=== PATIENT | male | born 1955 | race Caucasian/White ===

== ENCOUNTER → 2024-04-17 14:56 | Outpatient (REF) | payer OTHER, SELFPAY | LOC: HWRAD 14:56 | PROVIDERS: ATTENDING PHYSICIAN Student in an Organized Health Care Education/Training Program | DX: R07.81 Pleurodynia (principal); R10.9 Unspecified abdominal pain | CPT/HCPCS: 71101; 74177; Q9967 ==

== ENCOUNTER 2024-11-16 06:21 | Day surgery (SDC) | payer OTHER, SELFPAY | END 2024-11-16 14:55 | disposition home or self-care (01) | LOC: GI 06:21 | PROVIDERS: ATTENDING PHYSICIAN Internal Medicine Gastroenterology | DX: K62.1 Rectal polyp (principal); K57.30 Diverticulosis of large intestine without perforation or abscess without bleeding; K64.8 Other hemorrhoids; Z86.0101 Personal history of adenomatous and serrated colon polyps | CPT/HCPCS: 45380; 88305 ==